=== PATIENT | male | born 1970 | race Caucasian/White ===

== ENCOUNTER 2019-04-01 17:27 | Emergency (ER) | payer BC ==
[~2019-04-01] VITALS: Ht 165.1 cm; Wt 84.4 kg
[2019-04-01 17:36] VITALS: BP 179/103
--- NOTE | 2019-04-01 17:43 | NUR ---
PATIENT AMBULATED TO BED 3.
--- NOTE | 2019-04-01 17:46 | NUR ---
49 Y MALE BIB C/O RT LEG AND LT LOWER BACK PAIN. PT REPORTS RT LEG PAIN X1 DAY. HE WAS DUMPING ASPHALT AND A PIECE HIT RT LEG. BRUISING AND REDNESS ON PT RT LEG, PT HAS PAIN AT 8/10 ONLY WHEN WALKING. +CMS, +ROM. PT STATES RT LOWER BACK PAIN THAT RADIATES DOWN LT LEG X1 MONTH. BP 179/103. PT [id number]. BED IS DWON, LOCKED, BED RAIL X 1, ERMD TO SEE PT. MEDHX:HTN, BPH RX:LISNOPRIL, TAMSOLOSIN
--- NOTE | 2019-04-01 17:56 | NUR ---
DR BLAKELY AT BEDSIDE
[2019-04-01] MEDS ORDERED: MORPHINE SULFATE 2 MG/ML SYR IM/IVP ONE (18:00)
[2019-04-01] MEDS ORDERED: KETOROLAC 60 MG/2 ML VIAL IM ONE (18:10)
--- NOTE | 2019-04-01 18:17 | NUR ---
PT GOING TO XRAY
--- NOTE | 2019-04-01 18:45 | NUR ---
APPLIED JUANA WRAP TO RIGHT KNEE WITHOUT ANY ISSUES
--- NOTE | 2019-04-01 18:54 | NUR ---
JUANA WRAP PLACED ON RT KNEE BY EMT. CRUTCHES DEMONSTRATED AND PT VERBALIZED UNDERSTANDING.
[2019-04-01 19:00] VITALS: BP 164/98
--- NOTE | 2019-04-01 19:00 | NUR ---
Patient discharged with v/s stable. Written and verbal after care instructions given and explained TO PATIENT AND . Patient alert, oriented and verbalized understanding of instructions. Ambulatory with CRUTCHES. All questions addressed prior to discharge. ID band removed. Patient advised to follow up with PMD. Rx of ROBAXIN, MOTRIN, TRAMADOL HYDROCHLORIDE given. Patient educated on indication of medication including possible reaction and side effects. Opportunity to ask questions provided and answered.
== END 2019-04-01 19:00 | disposition home or self-care (01) ==
LOC: MED 17:27
DX: S32.048A Other fracture of fourth lumbar vertebra, initial encounter for closed fracture (principal); S32.058A Other fracture of fifth lumbar vertebra, initial encounter for closed fracture; S86.811A Strain of other muscle(s) and tendon(s) at lower leg level, right leg, initial encounter; W23.0XXA Caught, crushed, jammed, or pinched between moving objects, initial encounter; Y93.89 Activity, other specified; Y92.89 Other specified places as the place of occurrence of the external cause; Y99.0 Civilian activity done for income or pay
CPT/HCPCS: 72100; 73562; 96372; 99283; J1885; J2270